=== PATIENT | male | born 1955 | race Two or more races ===

== ENCOUNTER 2016-06-11 22:40 | Emergency (ER) | payer MEDICAID, OTHER ==
[~2016-06-11] VITALS: Ht 170.2 cm; Wt 74.8 kg
[2016-06-12] MEDS ORDERED: diphenhdrAMINE HCL 50 MG/1 ML VL ONE (01:13)
[2016-06-12] MEDS ORDERED: HALOPERIDOL LACTATE 5 MG/ML INJ VIAL ONE (01:14)
[2016-06-12] MEDS ORDERED: LORazepam 2MG/ML-1ML VIAL ONE (01:14)
[2016-06-12] MEDS ORDERED: HALOPERIDOL LACTATE 5 MG/ML INJ VIAL IM ONE (02:15)
[2016-06-12] MEDS ORDERED: LORazepam 2MG/ML-1ML VIAL IM ONE (02:15)
[2016-06-12] MEDS ORDERED: THIAMINE INJ 100 MG, MULTIPLE VITAMIN 10 ML, FOLIC ACID 1 MG, MAGNESIUM SULF SDV 50% 8 ... IV ONE ×5 (02:15)
[2016-06-12] MEDS ORDERED: diphenhdrAMINE HCL 50 MG/1 ML VL IM ONE (02:15)
[2016-06-12] MEDS ORDERED: BANANA BAG KIT 1 EA IV ONE (02:34)
[2016-06-12 02:42] LABS: Basophils # (auto) 0 uL; Basophils % (auto) 0.3 % (0.0-2.0); Eosinophils # (auto) 0 uL; Eosinophils % (auto) 0.4 % (0.0-7.0); Hemoglobin 14.4 g/dL (13.5-17.5); Lymphocytes # (auto) 1.7 uL; Lymphocytes % (auto) 20.1 % (10.0-50.0); Mean Corpuscular Hemoglobin 29.7 pg (28.0-32.0); Mean Corpuscular Hgb Conc. 32.1 g/dL (32.0-36.0); Mean Corpuscular Volume 92.7 fL (80.0-100.0); Mean Platelet Volume 7.5 fL (7.4-10.4); Monocytes # (auto) 0.5 uL; Monocytes % (auto) 5.9 % (0.0-12.0); Neutrophils # (auto) 6.1 uL; Neutrophils % (auto) 73.3 % (37.0-80.0); Platelet Count (auto) 311 10^3/uL (140-450); Red Cell Distribution Width 14.1 % (11.6-16.0); White Blood Cell 8.3 10^3/uL (4.4-10.8)
[2016-06-12 02:56] LABS: Albumin 3.4 g/dL (3.4-5.0); BUN/Creatinine Ratio 17.1; Calcium 8.5 mg/dL (8.5-10.1); Potassium 3.4 mmol/L (3.5-5.1)
[2016-06-12 02:59] LABS: Bilirubin, Total 0.2 mg/dL (0.2-1.0); Total Protein 6.8 g/dL (6.4-8.2)
[2016-06-12 03:14] LABS: Salicylate 3.6 mg/dL (2.8-20.0)
[2016-06-12 03:59] LABS: Acetaminophen < 2.0 ug/mL (10-30)
[2016-06-12 05:18] LABS: Urine RBC None Seen /hpf (0 - 3)
[2016-06-12 05:43] LABS: Urine Bilirubin Negative (Negative); Urine Blood Negative /uL (Negative); Urine Color Yellow (Yellow); Urine Glucose Normal (Normal); Urine Ketone Negative (Negative); Urine Nitrite Negative (Negative); Urine Squamous Epithelial Cell FEW /hpf (<5); Urine Urobilinogen Normal (Negative); Urine pH 5.5 (5.0-8.0)
[2016-06-12] MEDS ORDERED: SODIUM CHLORIDE 0.9% 1,000 ML IV ONE ×2 (07:00→07:17)
[2016-06-12] MEDS ORDERED: SODIUM CHLORIDE 0.9% 250 ML IV ONE (07:17)
[2016-06-12 08:13] VITALS: BP 122/65
== END 2016-06-12 09:16 | disposition home or self-care (01) ==
LOC: ER 22:40 → EDBD 22:40 → ER 06-12 09:16
DX: F10.120 Alcohol abuse with intoxication, uncomplicated (principal); E86.0 Dehydration; I25.2 Old myocardial infarction
CPT/HCPCS: 36415; 80053; 80320; 80329; 81001; 85025; 93005; 94761; 96361; 96365; 96366; 96372; 99285; G0434; J1200; J1630; J2060; J3411; J3475; J7030

== ENCOUNTER 2017-06-16 21:42 | Observation (INO) | payer MEDICAID, OTHER ==
[~2017-06-16] VITALS: Ht 167.6 cm; Wt 63.5 kg
[2017-06-16] MEDS ORDERED: diphenhdrAMINE HCL 50 MG/1 ML VL ONE (22:08)
[2017-06-16] MEDS ORDERED: HALOPERIDOL LACTATE 5 MG/ML INJ VIAL ONE (22:08)
[2017-06-16] MEDS ORDERED: LORazepam 2MG/ML-1ML VIAL ONE (22:09)
[2017-06-16] MEDS ORDERED: HALOPERIDOL LACTATE 5 MG/ML INJ VIAL IM ONE (22:15)
[2017-06-16] MEDS ORDERED: LORazepam 2MG/ML-1ML VIAL IM ONE (22:15)
[2017-06-16] MEDS ORDERED: diphenhdrAMINE HCL 50 MG/1 ML VL IM ONE (22:15)
[2017-06-16 22:17] LABS: Basophils # (auto) 0.1 uL; Basophils % (auto) 0.7 % (0.0-2.0); Eosinophils # (auto) 0.1 uL; Eosinophils % (auto) 1.1 % (0.0-7.0); Hematocrit 48.8 % (41.0-53.0); Hemoglobin 16.7 g/dL (13.5-17.5); Lymphocytes # (auto) 2.8 uL; Lymphocytes % (auto) 27.8 % (10.0-50.0); Mean Corpuscular Hemoglobin 31.7 pg (28.0-32.0); Mean Corpuscular Hgb Conc. 34.2 g/dL (32.0-36.0); Mean Corpuscular Volume 92.9 fL (80.0-100.0); Monocytes # (auto) 0.7 uL; Monocytes % (auto) 6.7 % (0.0-12.0); Neutrophils # (auto) 6.5 uL; Neutrophils % (auto) 63.7 % (37.0-80.0); Nucleated Red Blood Cells % 0.1 %; Platelet Count (auto) 284 10^3/uL (140-450); Red Blood Cells 5.25 10^6/uL (4.5-5.90); Red Cell Distribution Width 14.1 % (11.8-14.3); White Blood Cell 10.1 10^3/uL (4.4-10.8)
[2017-06-16 22:33] LABS: Albumin 4.3 g/dL (3.4-5.0); BUN/Creatinine Ratio 14.9; Calcium 8.8 mg/dL (8.5-10.1); Magnesium 2.3 mg/dL (1.6-2.6); Potassium 3.9 mmol/L (3.5-5.1)
[2017-06-16 22:34] LABS: Salicylate 5.2 mg/dL (2.8-20.0)
[2017-06-16 22:36] LABS: Acetaminophen < 2.0 ug/mL (10-30)
[2017-06-16 22:37] LABS: Bilirubin, Total 0.2 mg/dL (0.2-1.0); Total Protein 7.5 g/dL (6.4-8.2)
[2017-06-16] MEDS ORDERED: THIAMINE INJ 100 MG, MULTIPLE VITAMIN 10 ML, FOLIC ACID 1 MG, MAGNESIUM SULF SDV 50% 8 ... IV SCH ×5 (23:00)
[2017-06-16 23:05] LABS: Urine Bacteria NONE SEEN /hpf (None Seen); Urine Blood Negative /uL (Negative); Urine Specific Gravity 1.008 (1.001-1.035); Urine WBC 4 /hpf (0 - 3)
[2017-06-16 23:11] LABS: Amphetamine Screen, Urine NEGATIVE (NEGATIVE); Barbiturate Scree,Urine NEGATIVE (NEGATIVE); Benzodiazephine Screen, Urine NEGATIVE (NEGATIVE); Cannabinoid Screen, Urine NEGATIVE (NEGATIVE); Cocaine Screen, Urine NEGATIVE (NEGATIVE); Opiate Scree,Urine NEGATIVE (NEGATIVE); Phencyclidine Screen, Urine NEGATIVE (NEGATIVE)
[2017-06-16] MEDS ORDERED: SODIUM CHLORIDE 0.9% 1,000 ML IV ONE (23:15)
[2017-06-16] MEDS ORDERED: THIAMINE INJ 100 MG, MULTIPLE VITAMIN 10 ML, FOLIC ACID 1 MG, MAGNESIUM SULF SDV 50% 8 ... IV ONE ×5 (23:45)
[2017-06-16] MEDS ORDERED: MVI in SODIUM CHLORIDE 0.9% 1,010 ML ONE (23:59)
[2017-06-17] MEDS ORDERED: LORazepam 2MG/ML-1ML VIAL IM ONE (03:30)
[2017-06-17] MEDS ORDERED: HALOPERIDOL LACTATE 5 MG/ML INJ VIAL IM ONE (03:30)
[2017-06-17] MEDS ORDERED: diphenhdrAMINE HCL 50 MG/1 ML VL IM ONE (03:30)
[2017-06-17] MEDS ORDERED: THIAMINE INJ 100 MG, MULTIPLE VITAMIN 10 ML, FOLIC ACID 1 MG, MAGNESIUM SULF SDV 50% 8 ... IV SCH ×5 (12:00)
[2017-06-17 13:21] VITALS: BP 123/73
== END 2017-06-17 14:12 | disposition home or self-care (01) | DRG 52 ==
LOC: EDBD 21:42 → ER 21:45 → OVERFLOW 22:08 → EDUNIT# 22:08 → ER 06-17 14:12
PROVIDERS: ADMIT Family Medicine; ATTEND Family Medicine
DX: G92 Toxic encephalopathy (principal); F10.920 Alcohol use, unspecified with intoxication, uncomplicated
CPT/HCPCS: 36415; 71045; 80053; 80307; 80320; 80329; 81001; 83735; 85025; 93005; 96361; 96365; 96366; 96372; 99285; G0378; J1200; J1630; J2060; J3411; J3475; J7030